=== PATIENT | female | born 1985 | race American Indian/Alaskan Native ===

== ENCOUNTER 2017-01-20 02:30 | Outpatient (CLI) | payer BC ==
[2017-01-20] MEDS ORDERED: LACTATED RINGERS 1,000 ML IV ONE (03:14)
[2017-01-20 03:55] LABS: Bilirubin,Urine NEG (Negative); Blood,Urine SM (Negative); Ketones,Urine NEG (Negative); Leukocyte Esterase,Urine NEG (Negative); Mucus,Urine FEW /HPF; Nitrite,Urine NEG (Negative); Protein,Urine <15 mg/dL mg/dL (Negative); Urobilinogen,Urine < 2.0 mg/dL (<2.0)
== END 2017-01-20 05:04 | disposition home or self-care (01) ==
LOC: TRG 02:30
PROVIDERS: ATTEND Obstetrics & Gynecology
DX: O26.893 Other specified pregnancy related conditions, third trimester (principal); R25.2 Cramp and spasm; Z3A.33 33 weeks gestation of pregnancy
CPT/HCPCS: 59025; 81001; 96360; J7120

== ENCOUNTER 2017-02-09 08:50 | Outpatient (CLI) | payer BC ==
[2017-02-09] MEDS ORDERED: LACTATED RINGERS 500 ML IV ONE (09:14)
[2017-02-09 10:15] VITALS: BP 119/79
== END 2017-02-09 09:55 | disposition home or self-care (01) ==
LOC: TRG 08:50
PROVIDERS: ATTEND Obstetrics & Gynecology
DX: Z34.93 Encounter for supervision of normal pregnancy, unspecified, third trimester (principal); Z3A.36 36 weeks gestation of pregnancy
CPT/HCPCS: 59025

== ENCOUNTER 2017-02-16 05:37 | Inpatient (IN) | payer BC ==
[2017-02-16] MEDS ORDERED: LACTATED RINGERS 1,000 ML ONE ×2 (08:49→10:29)
[2017-02-16] MEDS ORDERED: PITOCin/NS 20 UNIT/1000ML DRIP 20,000 MILLIUNITS/1,000 ML BAG IV ONE ×2 (08:49→16:37)
--- NOTE | 2017-02-16 09:12 | History and Physical Report ---
History of Present Illness Date of examination: 02/16/17 Date of admission: 02/16/17 05:38 History of present illness: Patient presented to labor and delivery with complaint of vaginal bleeding consistent with bloody show. Initially the patient's cervical exam was 4 cm after walking her cervix changed to 6 cm. She was admitted for active labor patient's course complicated by GBS positive and rubella nonimmune. And also has spina bifida occulta Menstrual History Regularity: regular Menses every: 28 days Duration: 5 LMP: 05/30/2016 LMP reliability: definite LMP character: normal test type: urine test BC at conception: none Planned ? yes EDC Calculations LMP: 03/06/2017 EDC Confirmation: 03/06/2017 Past History : 1 Term Births: 0 Premature Births: 0 Living Children: 0 Para: 0 Mult. Births: 0 Prev : 0 Prev. attempt? 0 Aborta: 0 Elect. Ab: 0 Spont. 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 of genital herpes: no Partner hx. of genital herpes: no Rash, Viral, or Febrile illness since last LMP? no Varicella/Chicken Pox Status: Previous Disease Genetic History Congenital Heart Defect: Mom: no Dad: no Jon Disease: Mom: no Dad: no Thalassemia Mom: no Dad: no Neural Tube Defect Mom: no Dad: no Down's Syndrome Mom: no Dad: no Telly-Sachs Mom: no Dad: no Sickle Cell Disease/Trait Mom: no Dad: no Hemophilia Mom: no Dad: no Muscular Dystrophy Mom: no Dad: no Cystic Fibrosis Mom: no Dad: no Leake Chorea Mom: no Dad: no Mental Retardation Mom: no Dad: no Fragile X Mom: no Dad: no Other Genetic/Chromosomal Disorder Mom: no Dad: no Child w/other defect Mom: no Dad: no Enviromental Exposures Xray Exposure: yes Medication, drug, or alcohol use since LMP: no Chemical/Other Exposure: no Exposure to Cat Liter: no Hx of Parvovirus (Fifth Disease): no Occupational Exposure to Children: none 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 (see HPI) Family/Genetic History: other (see HPI) Social history: - Obstetrical History Expected Date of Delivery: 03/06/17 Actual Gestation: 37 Week(s) 3 Day(s) : 1 Para: 0 Hx # Term Pregnancies: 0 Number of Pregnancies: 0 Spontaneous Abortions: 0 Induced : 0 Number of Living Children: 0 Medications and Allergies Allergies Allergy/AdvReac Type Severity Reaction Status Date / Time No Known Allergies Allergy Verified 02/09/17 09:17 Home Medications Medication Instructions Recorded Confirmed Last Taken Type Pnv No.95/Ferrous Fum/Folic AC 1 tab PO DAILY 02/09/17 02/09/17 1 Day Ago History [ Formula Tablet] ~02/08/17 Review of Systems All systems: negative - Vital Signs Vital signs: Vital Signs Temp Resp 98.1 F 16 02/16/17 05:54 02/16/17 05:54 Temp Pulse Resp BP Pulse Ox 98.1 F 77 16 129/88 02/16/17 05:54 02/16/17 05:55 02/16/17 05:54 02/16/17 05:55 - Physical Exam Breasts: Positive: deferred Cardiovascular: Regular rate Lungs: Positive: Normal air movement Abdomen: Positive: normal appearance, soft Genitourinary (Female): Positive: normal external genitalia Cervix: Positive: other (exam per RN) - Obstetrical FHR: category 1 Uterine Tone Measurement Phase: Contraction Uterine Contraction Intensity: Moderate Results Result Diagrams: 02/16/17 09:10 All other labs normal. Assessment and Plan - Patient Problems (1) Active labor at term Current Visit: Yes Status: Acute Plan to address problem: We will admit and follow normal labor protocol (2) Raynauds syndrome Current Visit: Yes Status: Chronic Qualifiers: Raynaud?s-associated gangrene presence: without gangrene Qualified Code(s) : I73.00 - Raynaud's syndrome without gangrene (3) Spina bifida occulta Current Visit: Yes Status: Chronic Plan to address problem: The present patient does not desire epidural if changes mildly discussed with anesthesia (4) Group B streptococcal carriage complicating Current Visit: Yes Status: Acute Plan to address problem: We'll give prophylaxis (5) Rubella non-immune status, antepartum Current Visit: Yes Status: Acute Plan to address problem: Vaccine
[2017-02-16] MEDS ORDERED: PHENERGAN PO PRN ×2 (09:13→16:39)
[2017-02-16] MEDS ORDERED: XYLOCAINE 2% INFILTRATI ONE ×2 (09:13→13:37)
[2017-02-16] MEDS ORDERED: BRETHINE SUB-Q PRN (09:13)
[2017-02-16] MEDS ORDERED: ePHEDrine SULFATE IV PRN (09:13)
[2017-02-16] MEDS: LACTATED RINGERS 1,000 ML IV SCH ×2 (09:15→10:34)
[2017-02-16 09:40] LABS: Hematocrit 38.2 % (30.3-42.9); Hemoglobin 12.4 gm/dl (10.1-14.3); Mean Corpuscular HGB Conc 32 % (30-34); Mean Corpuscular Hemoglobin 26 pg (28-32); Mean Corpuscular Volume 81 fl (79-97); Platelet Count 264 K/mm3 (140-440); Red Blood Count 4.73 M/mm3 (3.65-5.03); Red Cell Distribution Width 14.1 % (13.2-15.2); White Blood Count 12.8 K/mm3 (4.5-11.0)
[2017-02-16] MEDS ORDERED: PITOCin/NS 20 UNIT/1000ML DRIP 20 UNITS/1,000 ML BAG IV SCH ×2 (10:00→16:39)
[2017-02-16] MEDS ORDERED: STADOL IV PRN (11:00)
[2017-02-16] MEDS ORDERED: POLYCILLIN/NS 2 GM/100 ML 2 GM/100 ML BAG IV ONE (11:00)
[2017-02-16] MEDS ORDERED: BRETHINE IVP PRN (11:00)
[2017-02-16] MEDS ORDERED: SUBLIMAZE ONE (11:15)
[2017-02-16] MEDS ORDERED: SUBLIMAZE IV PRN (12:00)
--- NOTE | 2017-02-16 12:51 | Event Note ---
Date: 02/16/17 She recently received fentanyl complaining of pressure cervix is now 9 cm 100% effaced and 0 station R Nixon rupture membranes revealed clear fluid patient still with bloody show
--- NOTE | 2017-02-16 14:16 | Procedure Note ---
OB Delivery Note - Delivery Date of Delivery: 02/16/17 Surgeon: TRE MENESES Estimated blood loss: 300cc - Vaginal Delivery position: OA Intrapartum events: none Delivery induction: none Delivery augmentation: rupture of membranes Delivery monitor: external FHT, external uterine Route of delivery: Delivery placenta: spontaneous Delivery cord: nuchal cord (x2) Episiotomy: none Delivery laceration: other (Right labia) Delivery repair: vicryl Anesthesia: local - A at 1 minute: 9 at 5 minutes: 9 Infant Gender: Female
[2017-02-16] MEDS ORDERED: SODIUM CHLORIDE FLUSH SYRINGE 10 ML IV NR (16:39)
[2017-02-16] MEDS ORDERED: TUCKS PAD TP PRN (16:39)
[2017-02-16] MEDS ORDERED: TYLENOL PO PRN (16:39)
[2017-02-16] MEDS ORDERED: NORCO 5/325 PO PRN (16:39)
[2017-02-16] MEDS ORDERED: BENADRYL PO PRN (16:39)
[2017-02-16] MEDS ORDERED: MILK OF MAGNESIA PO PRN (16:39)
[2017-02-16] MEDS ORDERED: PHENERGAN PR PRN (16:39)
[2017-02-16] MEDS ORDERED: DULCOLAX PR PRN (16:39)
[2017-02-16] MEDS: MOTRIN PO SCH ×2 (17:21→21:55)
[2017-02-16] MEDS: COLACE PO SCH (21:55)
[2017-02-16] MEDS ORDERED: MINERAL OIL PO PRN (22:00)
[2017-02-17] MEDS: MOTRIN PO SCH ×4 (05:11→23:16)
[2017-02-17 05:16] LABS: Hematocrit 30.4 % (30.3-42.9); Hemoglobin 10.2 gm/dl (10.1-14.3)
[2017-02-17] MEDS ORDERED: PRENATAL VITAMIN PO SCH (10:00)
[2017-02-17] MEDS: COLACE PO SCH ×2 (10:41→21:56)
[2017-02-17] MEDS ORDERED: M-M-R II VACCINE SUB-Q ONE (11:09)
[2017-02-17] MEDS ORDERED: BOOSTRIX IM ONE (11:16)
--- NOTE | 2017-02-17 11:16 | Progress Note ---
Assessment and Plan - Patient Problems (1) Vaginal delivery Current Visit: Yes Status: Acute (2) Active labor at term Current Visit: Yes Status: Acute (3) Rubella non-immune status, antepartum Current Visit: Yes Status: Acute Plan to address problem: MMR (4) Group B streptococcal carriage complicating Current Visit: Yes Status: Acute Subjective - Subjective Date of service: 02/17/17 Principal diagnosis: IUP term, delivered Interval history: nl pp course, Patient reports: appetite normal, voiding normally, pain well controlled, ambulating normally [place]: doing well Objective - Vital Signs Latest vital signs: Vital Signs Temp Pulse Resp BP BP Pulse Ox 02/17/17 08:28 97.9 F 79 18 113/73 95 02/17/17 05:11 16 02/17/17 00:00 98.6 F 76 18 111/69 02/16/17 22:55 16 02/16/17 21:55 16 02/16/17 20:05 98.0 F 93 H 18 127/77 02/16/17 16:42 98.0 F 79 18 115/75 97 02/16/17 16:02 83 121/79 02/16/17 15:47 77 123/73 02/16/17 15:17 81 122/69 02/16/17 15:02 83 124/73 02/16/17 14:48 84 150/77 02/16/17 14:15 97.8 F 18 02/16/17 14:02 77 127/70 02/16/17 13:59 70 128/69 02/16/17 13:48 111 H 144/93 02/16/17 13:32 101 H 141/77 02/16/17 13:17 89 132/78 02/16/17 13:04 90 130/78 02/16/17 12:47 85 135/82 02/16/17 12:33 80 123/85 02/16/17 12:19 82 125/83 02/16/17 12:02 81 132/83 02/16/17 12:00 98.1 F 18 02/16/17 11:48 82 125/78 02/16/17 11:45 18 02/16/17 11:33 92 H 140/85 02/16/17 11:18 87 131/85 02/16/17 11:15 18 Intake and Output 02/16/17 02/17/17 02/17/17 23:59 07:59 15:59 Intake Total 120 120 Output Total 300 100 Balance -180 20 Intake: Oral 120 120 Output: Urine 300 100 Void 300 100 Other: Total, Intake Amount 120 120 Total, Output Amount 300 100 # Voids Void 1 Estimated Blood Loss 300 - Exam Breasts: Present: deferred Lungs: Present: Normal air movement Abdomen: Present: normal appearance, soft Uterus: Present: normal, firm Extremities: Present: normal
[2017-02-18] MEDS: MOTRIN PO SCH ×2 (05:06→12:21)
--- NOTE | 2017-02-18 09:21 | Discharge Summary ---
Providers - Providers Date of Admission: 02/16/17 05:38 Date of discharge: 02/18/17 Attending physician: MARITZA SIMS 02/16/17 16:39 Consult to Process Project Engineer [CONS] Routine Reason For Exam: assistance with , SNS Primary care physician: MARITZA SIMS Hospitalization Reason for admission: active labor Delivery: Episiotomy: none Laceration: 2nd degree, other (right labial laceration) complications: none Discharge diagnosis: IUP at term delivered baby: female Hospital course: Patient was admitted underwent a normal spontaneous vaginal delivery. Her course was benign. She was afebrile throughout her stay. Her day 1 hematocrit was 30.4%. Patient is breast-feeding and desires oral contraceptives. Condition at discharge: Good Disposition: DC-01 TO HOME OR SELFCARE - Discharge Diagnoses (1) Active labor at term Status: Resolved (2) Raynauds syndrome Status: Chronic Qualifiers: Raynaud?s-associated gangrene presence: without gangrene Qualified Code(s) : I73.00 - Raynaud's syndrome without gangrene (3) Spina bifida occulta Status: Chronic (4) Group B streptococcal carriage complicating Status: Chronic (5) Rubella non-immune status, antepartum Status: Resolved Plan - Discharge Medications Prescriptions: Ferrous Sulfate [Feosol 325 MG tab] 325 mg PO BID #60 tablet Ibuprofen [Motrin 800 MG tab] 800 mg PO Q6H PRN #30 tablet PRN Reason: Pain - Provider Discharge Summary Activity: routine, no sex for 6 weeks, no strenuous exercise Additional instructions: [] Smoking cessation referral if applicable(refer to patient education folder for contact #) [] Refer to [facility] Booklet Call your doctor immediately for: * Fever > 100.5 * Heavy vaginal bleeding ( >1 pad per hour) * Severe persistent headache * Shortness of breath * Reddened, hot, painful area to leg or breast * Drainage or odor from incision. * Keep incision clean and dry at all times and follow doctor's instructions regarding bathing/showering - Follow up plan Follow up: MARITZA SIMS MD [Primary Care Provider] - 7 Days
[2017-02-18] MEDS: COLACE PO SCH (12:22)
[2017-02-18 13:16] VITALS: BP 108/63
== END 2017-02-18 13:50 | disposition home or self-care (01) | DRG 775 ==
LOC: TRG 05:37 → LD 05:38 → TRG 05:43 → OB 16:32
PROVIDERS: ADMIT Obstetrics & Gynecology; ATTEND Obstetrics & Gynecology
PROC: 10E0XZZ Delivery of Products of Conception, External Approach (ICD-10-PCS; principal; 2017-02-16)
PROC: 0KQM0ZZ Repair Perineum Muscle, Open Approach (ICD-10-PCS; 2017-02-16)
PROC: 3E0234Z Introduction of Serum, Toxoid and Vaccine into Muscle, Percutaneous Approach (ICD-10-PCS; 2017-02-17)
DX: O69.81X0 Labor and delivery complicated by cord around neck, without compression, not applicable or unspecified (principal); Z3A.37 37 weeks gestation of pregnancy; Z37.0 Single live birth; Z23 Encounter for immunization; O99.824 Streptococcus B carrier state complicating childbirth; O75.89 Other specified complications of labor and delivery; I73.00 Raynaud's syndrome without gangrene; O70.1 Second degree perineal laceration during delivery; Q76.0 Spina bifida occulta
CPT/HCPCS: 36415; 85014; 85018; 85027; 86592; 86850; 86900; 86901; 90471; 99211; G0463; J2590; J3010; J7120